=== PATIENT | male | born 1965 | race African-American/Black ===

== ENCOUNTER 2017-08-18 15:28 | Emergency (ER) | payer BC ==
[2017-08-18] MEDS ORDERED: KETOROLAC TROMETHAMINE 60 MG/2 ML SDV IM ONE (16:51)
--- NOTE | 2017-08-18 16:52 | ER Document Report ---
ED Neck/Back Problem - General Chief Complaint: Back Pain Stated Complaint: BACK PAIN Time Seen by Provider: 08/18/17 16:44 Mode of Arrival: Ambulatory Information source: Patient Notes: Patient is a 52-year-old male who presents to the ER today for right lower back pain 5 days. Patient states that he has had this pain before but he does not have chronic pain. He states it has only happened once before and it was from overuse of working. He describes the pain as a stiffness more so than the pain to the right lower back and denies that it radiates anywhere. He denies any numbness or tingling, loss of bladder or bowel function. TRAVEL OUTSIDE OF THE [place] IN LAST 30 DAYS: No - Related Data Allergies/Adverse Reactions: No Known Allergies Allergy (Verified 08/18/17 15:30) Past Medical History - General Information source: Patient - Social History Smoking Status: Never Smoker Frequency of alcohol use: None Drug Abuse: None Family History: Reviewed & Not Pertinent Patient has suicidal ideation: No Patient has homicidal ideation: No - Past Medical History Cardiac Medical History: Reports: Hx Hypertension Renal/ Medical History: Denies: Hx Peritoneal Dialysis Review of Systems - Review of Systems Constitutional: No symptoms reported EENT: No symptoms reported Cardiovascular: No symptoms reported Respiratory: No symptoms reported Gastrointestinal: No symptoms reported Genitourinary: No symptoms reported Male Genitourinary: No symptoms reported Musculoskeletal: See HPI Skin: No symptoms reported Hematologic/Lymphatic: No symptoms reported Neurological/Psychological: No symptoms reported Physical Exam - Vital signs Vitals: Temp Pulse Resp BP Pulse Ox 97.9 F 94 18 150/91 H 96 08/18/17 15:40 08/18/17 15:40 08/18/17 15:40 08/18/17 15:40 08/18/17 15:40 - Notes Notes: PHYSICAL EXAMINATION: GENERAL: Well-appearing and in no acute distress. HEAD: Atraumatic, normocephalic. EYES: Pupils equal round and reactive to light, extraocular movements intact, sclera anicteric, conjunctiva are normal. NECK: Normal range of motion, supple without lymphadenopathy LUNGS: CTAB and equal. No wheezes rales or rhonchi. HEART: Regular rate and rhythm without murmurs ABDOMEN: Soft, no tenderness. No guarding, no rebound BACK: mild right lower lumbar tenderness, no vertebral tenderness, normal ROM GI/: no CVA tenderness EXTREMITIES: Normal range of motion, no pitting edema. No cyanosis. NEUROLOGICAL: Cranial nerves grossly intact. Normal sensory/motor exams. PSYCH: Normal mood, normal affect. SKIN: Warm, Dry, normal turgor, no rashes or lesions noted Course - Re-evaluation Re-evalutation: 08/18/17 18:09 Urinalysis negative for any signs of infection. Patient feels better after Toradol injection. We will send patient home with anti-inflammatories and muscle relaxers. - Vital Signs Vital signs: Temp Pulse Resp BP Pulse Ox 97.9 F 94 18 150/91 H 96 08/18/17 15:40 08/18/17 15:40 08/18/17 15:40 08/18/17 15:40 08/18/17 15:40 Discharge - Discharge Clinical Impression: Low back pain Qualifiers: Chronicity: acute Back pain laterality: unspecified Sciatica presence: without sciatica Qualified Code(s): M54.5 - Low back pain Condition: Stable Disposition: HOME, SELF-CARE Additional Instructions: Return immediately for any new or worsening symptoms. Follow up with primary care provider, call tomorrow to make followup appointment. Prescriptions: Cyclobenzaprine HCl [Flexeril 10 mg Tablet] 10 mg PO TIDP PRN #15 tab PRN Reason: Ibuprofen [Motrin 800 mg Tablet] 800 mg PO Q8H PRN #30 tab PRN Reason: Forms: Return to Work Referrals: ELISABETH FLORES MD [Primary Care Provider] - Follow up as needed
[2017-08-18 17:53] LABS: APPEARANCE,URINE CLEAR; BILIRUBIN,URINE NEGATIVE (NEGATIVE); COLOR,URINE YELLOW; GLUCOSE, URINE NEGATIVE (NEGATIVE); KETONES,URINE NEGATIVE (NEGATIVE); LEUKOCYTE ESTERASE,URINE NEGATIVE (NEGATIVE); NITRITE,URINE NEGATIVE (NEGATIVE); PROTEIN,URINE NEGATIVE (NEGATIVE); URINE SPECIFIC GRAVITY 1.025; UROBILINOGEN,URINE NEGATIVE mg/dL (<2.0)
[2017-08-18 18:19] VITALS: BP 147/90
== END 2017-08-18 18:19 | disposition home or self-care (01) ==
LOC: ER 15:28
DX: M54.5 Low back pain (principal); I10 Essential (primary) hypertension
CPT/HCPCS: 99283; 96372; 81001; J1885

== ENCOUNTER → 2017-10-23 | Outpatient (CLI) | payer BC ==
[2017-10-23 10:03] LABS: HEMATOCRIT 46.1 % (37.9-51.0); HEMOGLOBIN 15.4 g/dL (13.5-17.0); MEAN CORPUSCULAR HEMOGLOBIN 29.2 pg (27.0-33.4); MEAN CORPUSCULAR HGB CONC 33.4 g/dL (32.0-36.0); MEAN CORPUSCULAR VOLUME 87 fl (80-97); PLATELET COUNT 206 10^3/uL (150-450); RED BLOOD COUNT 5.27 10^6/uL (4.35-5.55); RED CELL DISTRIBUTION WIDTH 15.2 % (11.5-14.0); WHITE BLOOD COUNT 6.3 10^3/uL (4.0-10.5)
[2017-10-24 12:51] LABS: PSA % FREE 11.7 % (.); PSA FREE 0.35 ng/mL
== END ==
LOC: LAB 09:51
PROVIDERS: ATTEND Urology
DX: E29.1 Testicular hypofunction (principal)
CPT/HCPCS: 36415; 84154; 84402; 84403; 85027

== ENCOUNTER 2017-11-21 23:50 | Emergency (ER) | payer BC ==
[2017-11-22] MEDS ORDERED: DEXAMETHASONE 4 MG TABLET PO ONE (01:05)
[2017-11-22] MEDS ORDERED: PENICILLIN G BENZATHINE 1.2 MILLION UNIT/2 ML DISP.SYRIN IM ONE (01:43)
--- NOTE | 2017-11-22 01:54 | ER Document Report ---
ED General - General Chief Complaint: Toothache Stated Complaint: SORE THROAT Time Seen by Provider: 11/22/17 00:29 Notes: Patient is a 52-year-old male with medical history as recorded who presents with 2 days of sore throat. He describes it as a dull, constant, aching, throbbing pain into the back of his throat. Swallowing worsens the pain. He has not tried anything for improvement of the pain. He denies any associated fever, vomiting or constitutional symptoms. He has not seen his primary care doctor regarding today's concerns. He reports this feels similar to when he has had strep pharyngitis in the past. He notes that while it is painful to swallow he is able to do so. He denies any difficulty breathing. TRAVEL OUTSIDE OF THE [place] IN LAST 30 DAYS: No - Related Data Allergies/Adverse Reactions: No Known Allergies Allergy (Verified 08/18/17 15:30) Past Medical History - General Information source: Patient - Social History Smoking Status: Never Smoker Frequency of alcohol use: None Drug Abuse: None Lives with: Spouse/Significant other Family History: Reviewed & Not Pertinent Patient has suicidal ideation: No Patient has homicidal ideation: No - Past Medical History Cardiac Medical History: Reports: Hx Hypertension Renal/ Medical History: Denies: Hx Peritoneal Dialysis Review of Systems - Review of Systems Notes: Constitutional: Negative for fever. HENT: Positive for sore throat. Eyes: Negative for visual changes. Cardiovascular: Negative for chest pain. Respiratory: Negative for shortness of breath. Gastrointestinal: Negative for abdominal pain, vomiting or diarrhea. Genitourinary: Negative for dysuria. Musculoskeletal: Negative for back pain. Skin: Negative for rash. Neurological: Negative for headaches, weakness or numbness. 10 point ROS negative except as marked above and in HPI. Physical Exam - Vital signs Vitals: Temp Pulse Resp BP Pulse Ox 98.4 F 96 20 154/84 H 100 11/22/17 00:04 11/22/17 00:04 11/22/17 00:04 11/22/17 00:04 11/22/17 00:04 Interpretation: Hypertensive Notes: PHYSICAL EXAMINATION: GENERAL: Well-appearing, well-nourished and in no acute distress. HEAD: Atraumatic, normocephalic. EYES: Pupils equal round and reactive to light, extraocular movements intact, sclera anicteric, conjunctiva are normal. ENT: nares patent, bilateral tonsillar exudates and palatal petechiae. No oropharyngeal edema. NECK: Normal range of motion, bilateral segmental and anterior cervical lymphadenopathy that is mildly tender to palpation. LUNGS: Breath sounds clear to auscultation bilaterally and equal. No wheezes rales or rhonchi. HEART: Regular rate and rhythm without murmurs ABDOMEN: Soft, nontender, normoactive bowel sounds. No guarding, no rebound. No masses appreciated. EXTREMITIES: Normal range of motion, no pitting or edema. No cyanosis. NEUROLOGICAL: No focal neurological deficits. Moves all extremities spontaneously and on command. PSYCH: Normal mood, normal affect. SKIN: Warm, Dry, normal turgor, no rashes or lesions noted. Course - Re-evaluation Re-evalutation: 11/22/17 01:43 Presentation of several days of sore throat in an otherwise well-appearing patient. Rapid strep is positive. History and exam are not consistent with a retropharyngeal abscess or peritonsillar abscess. Airway is patent. No difficulty handling oral secretions. Vitals within normal limits. Patient has been treated with an IM dose of penicillin. At this time will discharge with return precautions and follow-up recommendations. Verbal discharge instructions given a the bedside and opportunity for questions given. Medication warnings reviewed. Patient is in agreement with this plan and has verbalized understanding of return precautions and the need for primary care follow-up in the next 24-72 hours. - Vital Signs Vital signs: Temp Pulse Resp BP Pulse Ox 98.3 F 88 20 145/80 H 99 11/22/17 02:20 11/22/17 02:20 11/22/17 02:20 11/22/17 02:20 11/22/17 02:20 Discharge - Discharge Clinical Impression: Strep pharyngitis Condition: Good Disposition: HOME, SELF-CARE Additional Instructions: You have been diagnosed with strep throat based on a positive strep test. You have been treated with a dose of penicillin here in the emergency department and do not need any additional antibiotics. You have also been given a dose of steroids to help with your throat discomfort. Please continue to take ibuprofen 600 mg every 6 hours or Tylenol 1000 mg every 6 hours as needed for throat discomfort. You can also gargle with salt water. Continue to drink plenty of fluids. Follow-up with your primary care doctor in the next several days. Return if you become unable to swallow, have difficulty breathing, pass out, have persistent vomiting that prevents you from being able to tolerate fluids, or have any other symptoms that are concerning to you. Forms: Return to Work Referrals: ELISABETH FLORES MD [Primary Care Provider] - Follow up as needed
[2017-11-22 02:28] VITALS: BP 145/80
== END 2017-11-22 02:20 | disposition home or self-care (01) ==
LOC: ER 23:50
DX: J02.0 Streptococcal pharyngitis (principal); I10 Essential (primary) hypertension
CPT/HCPCS: 99282; 87880; J0561

== ENCOUNTER → 2020-07-03 | Outpatient (CLI) | payer BC ==
[~2020-07-03] MED LIST: COVID-19 VACCINE (PFIZER)/PF 30 MCG/0.3 ML VIAL IM ONE; EPINEPHRINE INJ/PF 1 MG/1 ML AMPULE IM PRN
== END ==
LOC: EMPHEALTH 16:05
PROVIDERS: ATTEND Internal Medicine
DX: Z23 Encounter for immunization (principal)
CPT/HCPCS: 91300

== ENCOUNTER → 2020-07-24 | Outpatient (CLI) | payer BC | LOC: EMPHEALTH 09:54 | PROVIDERS: ATTEND Internal Medicine | DX: Z23 Encounter for immunization (principal) | CPT/HCPCS: 91300 ==